=== PATIENT | male | born 1995 | race African-American/Black ===

== ENCOUNTER 2018-07-27 13:06 | Emergency (ER) | payer OTHER ==
[~2018-07-27] VITALS: Ht 177.8 cm; Wt 84.1 kg
--- NOTE | 2018-07-27 16:00 | REP ---
Clinical: Head injury . Comparison: None . Findings: The ventricles, sulci, and cisterns are normal in position and appearance. Powell-white differentiation is maintained. No acute intracranial hemorrhage, mass/mass effect, pathology or trauma/injury. No evidence for acute infarction. No extra-axial fluid collection. Calvarium is intact. Paranasal sinuses and mastoid air cells are clear. Impression: Normal noncontrast head CT. No evidence for acute intracranial pathology or trauma/injury. Electronically Signed by Donny Harrison MD 07/27/2018 03:52 P
[2018-07-27 16:24] VITALS: BP 136/71
== END 2018-07-27 16:32 | disposition home or self-care (01) ==
LOC: M ED 13:06
DX: S09.90XA Unspecified injury of head, initial encounter (principal); W00.9XXA Unspecified fall due to ice and snow, initial encounter; Y92.89 Other specified places as the place of occurrence of the external cause; Y93.9 Activity, unspecified; Y99.1 Military activity

== ENCOUNTER → 2020-07-10 | Outpatient (CLI) | payer SELFPAY | LOC: M LABSMTC 10:48 | PROVIDERS: ATTEND Pediatrics | DX: Z20.822 Contact with and (suspected) exposure to COVID-19 (principal) ==